=== PATIENT | female | born 1980 | race Caucasian/White ===

== ENCOUNTER 2019-03-11 19:22 | Emergency (ER) | payer SELFPAY ==
[2019-03-11 19:43] VITALS: TEMP 98.4
[2019-03-11] MEDS ORDERED: HYDROCOD/APAP 10/325 (ER DISP) # 3 tablets PO ONE (20:19)
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
[2019-03-11 20:46] VITALS: BP 114/83; O2SAT 99
== END 2019-03-11 20:44 | disposition home or self-care (01) ==
LOC: ER 19:22
DX: L55.1 Sunburn of second degree (principal)

== ENCOUNTER 2019-12-27 15:26 | Emergency (ER) | payer SELFPAY ==
--- NOTE | 2019-12-27 15:37 | ED.PDOC ---
History of Present Illness - General Time Seen by Provider: 12/27/19 15:30 Source: patient Exam Limitations: no limitations - History of Present Illness Initial Comments: The patient is a 39-year-old female presents emergency room secondary to pain in the ulnar aspect of her forearm. The patient is a cook for [employer]. She has pain towards the medial epicondyle. Additionally she does appear to have some aspect of chronic ulnar neuropathy in that hand, actually in both hands. She thinks it is a little bit worse recently. No recent trauma. No gross deformity. No loss of strength. No pain above the elbow. Timing/Duration: unsure Severity: moderate Improving Factors: nothing Worsening Factors: nothing Associated Symptoms: denies symptoms Allergies/Adverse Reactions: Allergies NO KNOWN ALLERGY Allergy (Verified 03/11/19 20:37) Home Medications: Ambulatory Orders Hydrocortisone (Topical) [Ala-Boubacar] 2.5 gm EX BID #30 cre 03/11/19 Lidocaine HCl [Lidocaine HCl Jelly] 2 gm EX BID #30 gel 03/11/19 Tramadol HCl 50 mg PO Q6HRS #16 tab 03/11/19 predniSONE [Prednisone] 20 mg PO DAILY #5 tab 12/27/19 Review of Systems - Review of Systems Constitutional: States: no symptoms reported EENTM: States: no symptoms reported Respiratory: States: no symptoms reported Cardiology: States: no symptoms reported Gastrointestinal/Abdominal: States: no symptoms reported Genitourinary: States: no symptoms reported Musculoskeletal: States: see HPI Skin: States: no symptoms reported Neurological: States: see HPI Endocrine: States: no symptoms reported All other Systems: No Change from Baseline Past Medical History (General) - Patient Medical History Hx Seizures: No Hx Stroke: No Hx Dementia: No Hx Asthma: No Hx of COPD: No Hx Cardiac Disorders: No Hx Congestive Heart Failure: No Hx Pacemaker: No Hx Hypertension: No Hx Thyroid Disease: No Hx Diabetes: No Hx Gastroesophageal Reflux: No Hx Renal Disease: No Hx Cancer: No Hx of HIV: No Hx Hepatitis C: No Hx MRSA: No - Vaccination History Hx Tetanus, Diphtheria Vaccination: No Hx Influenza Vaccination: No - Social History Hx Alcohol Use: Yes - occasional Family Medical History - Family History Mother Family History: Unknown Physical Exam - Physical Exam General Appearance: Alert, Comfortable, No apparent distress Eye Exam: bilateral normal Ears, Nose, Throat: hearing grossly normal Respiratory: no respiratory distress, no accessory muscle use Cardiovascular/Chest: normal peripheral pulses, no edema Peripheral Pulses: radial,right: 2+, radial,left: 2+ Gastrointestinal/Abdominal: other - Obese Rectal Exam: deferred Extremity: normal range of motion, no pedal edema, normal capillary refill, other - See history of present illness. Neurologic: global account director II-XII nml as tested, alert, normal mood/affect, oriented x 3 Skin Exam: normal color - Multiple tattoos Progress - Progress Progress: 12/27/19 15:37 The patient is a 39-year-old female presented emergency room secondary to symptoms of her right hand and forearm. She appears to have a mild medial epicondylitis along with a more chronic ulnar neuropathy that seems to be flaring. I would recommend the patient get set up with a neurologist for nerve conduction test in the future to see if further intervention needs to be done. In the meantime I will place her on 5 days of oral prednisone to reduce inflammation. She does need to do stretching exercises. Reduced repetitive motion at work over the next few days may also be helpful. ER warnings are given. [email or web address] [id number] Departure - Departure Clinical Impression: Medial epicondylitis Qualifiers: Laterality: right Qualified Code(s): M77.01 - Medial epicondylitis, right elbow Ulnar neuropathy Qualifiers: Laterality: right Qualified Code(s): G56.21 - Lesion of ulnar nerve, right upper limb Disposition: Discharge to Home or Self Care Condition: Fair Instructions: Medial Epicondylitis (DC) Diet: regular diet Activity: no pushing/pulling with affected limb Referrals: UNKNOWN,PHYSICIAN [Primary Care Provider] - 1-2 Weeks Prescriptions: predniSONE [Prednisone] 20 mg PO DAILY #5 tab Home Medications: Ambulatory Orders Hydrocortisone (Topical) [Ala-Boubacar] 2.5 gm EX BID #30 cre 03/11/19 Lidocaine HCl [Lidocaine HCl Jelly] 2 gm EX BID #30 gel 03/11/19 Tramadol HCl 50 mg PO Q6HRS #16 tab 03/11/19 predniSONE [Prednisone] 20 mg PO DAILY #5 tab 12/27/19 Additional Instructions: The patient is a 39-year-old female presented emergency room secondary to symptoms of her right hand and forearm. She appears to have a mild medial epicondylitis along with a more chronic ulnar neuropathy that seems to be flaring. I would recommend the patient get set up with a neurologist for nerve conduction test in the future to see if further intervention needs to be done. In the meantime I will place her on 5 days of oral prednisone to reduce inflammation. She does need to do stretching exercises. Reduced repetitive motion at work over the next few days may also be helpful. ER warnings are given.
[2019-12-27] MEDS ORDERED: predniSONE 20 MG TAB PO ONE (15:41)
[2019-12-27 15:45] VITALS: BP 145/89; TEMP 97.4; O2SAT 99
== END 2019-12-27 15:52 | disposition home or self-care (01) ==
LOC: ER 15:26
DX: M77.01 Medial epicondylitis, right elbow (principal); G56.21 Lesion of ulnar nerve, right upper limb

== ENCOUNTER 2020-01-09 21:12 | Emergency (ER) | payer SELFPAY ==
--- NOTE | 2020-01-09 21:28 | ED.PDOC ---
History of Present Illness - General Chief Complaint: Lower Extremity Injury Stated Complaint: right knee popped when pivoting Time Seen by Provider: 01/09/20 21:26 Source: patient - History of Present Illness Initial Comments: 39 YO female who presents with chief complaint of acute right knee pain following injury at work approximately 4 hours ago. 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 While walking she planted the right foot to pivot and it slipped on the floor and she felt a sudden popping sensation in the right anterior inferior aspect of the knee. Since then she reports while standing or walking a constant sharp severe pain to the same area of the knee without radiation, worsens with weightbearing and walking, nearly resolves completely with sitting, no meds taken for relief. She also states that the knee now feels unstable like it may give out. Denies any swelling, bruising, deformity, weakness, numbness. Reports she has history of chronic pain from osteoarthritis in the same knee with pain usually along the medial aspect of the knee. She is concerned she will not be able to work in her current state with this injury. Allergies/Adverse Reactions: Allergies Penicillins Allergy (Verified 01/09/20 21:28) Home Medications: Ambulatory Orders NK 01/09/20 Review of Systems - Review of Systems Review of Systems: 01/09/20 21:40 as per HPI All other Systems: Reviewed and Negative Past Medical History (General) - Patient Medical History Hx Seizures: No Hx Stroke: No Hx Dementia: No Hx Asthma: No Hx of COPD: No Hx Cardiac Disorders: No Hx Congestive Heart Failure: No Hx Pacemaker: No Hx Hypertension: No Hx Thyroid Disease: No Hx Diabetes: No Hx Gastroesophageal Reflux: No Hx Renal Disease: No Hx Cancer: No Hx of HIV: No Hx Hepatitis C: No Hx MRSA: No - Vaccination History Hx Tetanus, Diphtheria Vaccination: No Hx Influenza Vaccination: No Hx Pneumococcal Vaccination: No - Social History Hx Tobacco Use: Yes Cigarettes Packs Per Day: 2 Hx Alcohol Use: Yes - occasional Hx Substance Use: No Hx Substance Use Treatment: No Hx Depression: Yes - Bipolar - Female History Patient : No Family Medical History - Family History Mother Family History: Unknown Hx Family;Other: CRPS Physical Exam - Physical Exam General Appearance: Alert, Comfortable, No apparent distress, Obese Neck: non-tender, full range of motion Cardiovascular/Respiratory: regular rate, rhythm, no M/R/G, normal peripheral pulses, normal breath sounds, no respiratory distress Gastrointestinal/Abdominal: non-tender Back: normal inspection Thigh/Hip: normal inspection Leg: normal inspection Knee: normal inspection, other - Right knee appears normal on inspection W/O bruising, swelling, deformity. The patella appears to lie in the appropriate position without excess laxity. Patient has moderate medial joint line TTP and moderate TTP to the anterior superior tibial region near the insertion point of the patellar tendon. Active and passive range of motion of the knee appears normal, strength and sensation normal throughout. Ligament testing appears normal throughout the knee Ankle: normal inspection Neuro/Tendon: normal sensation, normal motor functions Mental Status: alert, oriented x 3 Skin: normal color, warm/dry Progress - Progress Progress: 01/09/20 21:44 Acute right knee pain -Consider patellar tendinopathy, partial/complete patellar tendon tear, patellofemoral pain syndrome, patellar subluxation, ACL tear, knee fracture, osteoarthritis flare, knee strain/sprain -Will obtain x-ray imaging of the right knee and apply cold pack, offer ibuprofen for pain 01/09/20 22:21 -X-ray of the right knee reveals no acute fractures or processes per my read. There is evidence of mild arthritis throughout the knee. The patella seems to be in good position. -Discussed suspected diagnosis of patellar tendinopathy of the right knee with patient as well as expected clinical course and continued treatment plan at home with RICE plus OTC meds plus rehab. -DC to home in good condition. Follow-up with PCP in next 1 to 2 weeks. Work note given. Ashwin Sanchez MD Billing #[id number] Departure - Departure Clinical Impression: Tendinopathy of patella Time of Disposition: 22:17 Disposition: Discharge to Home or Self Care Condition: Good Departure Forms: ED Discharge - Pt. Copy, Patient Portal Self Enrollment, ED Discharge - Work Release Instructions: DI for Knee Pain, Patellar Tendinopathy (DC) Diet: resume usual diet Activity: increase activity as tolerated Referrals: UNKNOWN,PHYSICIAN [Primary Care Provider] - 1-2 Weeks Home Medications: Ambulatory Orders NK 01/09/20 Additional Instructions: For the next 2 to 3 days keep the right leg elevated as often as possible and apply a cold pack for 15 to 20 minutes every 1-2 hours to help limit pain and swelling. You may also use the compression wrap to the affected area as you find that it helps. He may continue to take OTC medications such as Tylenol 650 mg every 6 hours as needed and ibuprofen 600 mg every 6 hours as needed. Gradually return to weightbearing and walking as tolerated. Follow-up with your primary care physician in the next 1 to 2 weeks for repeat evaluation or sooner as needed.
[2020-01-09 22:04] VITALS: TEMP 96.2
--- NOTE | 2020-01-09 22:10 | RAD ---
EXAM: Knee,Right Complete CLINICAL INDICATION: 39-year-old female with RIGHT knee pain. TECHNIQUE: Three views RIGHT knee were obtained in AP, lateral and patellar projections COMPARISON: None. FINDINGS: There is no fracture or dislocation. The joint spaces are preserved. No soft tissue abnormalities are seen. Mild degenerative change with sharpening the tibial spines and tricompartmental tiny osteophytes. Nonspecific subcentimeter focus of square density is identified overlying the projection of the medial knee soft tissues raising the possibility of soft tissue calcification, foreign body or object external to the patient. IMPRESSION: 1. No acute radiographic abnormality. 2. Nonspecific subcentimeter focus of square density is identified overlying the projection of the medial knee soft tissues raising the possibility of soft tissue calcification, foreign body or object external to the patient. Electronically signed by: Roxi Monsivais MD 01/09/2020 10:09 PM CDT
[2020-01-09 22:36] VITALS: BP 124/76; O2SAT 100
== END 2020-01-09 22:32 | disposition home or self-care (01) ==
LOC: ER 21:12
DX: M76.51 Patellar tendinitis, right knee (principal); F17.210 Nicotine dependence, cigarettes, uncomplicated; W01.0XXA Fall on same level from slipping, tripping and stumbling without subsequent striking against object, initial encounter; Y92.511 Restaurant or cafe as the place of occurrence of the external cause; Y99.0 Civilian activity done for income or pay